=== PATIENT | male | born 1970 | race Caucasian/White ===

== ENCOUNTER 2019-10-08 12:33 | Day surgery (SDC) | payer BC ==
[2019-10-07 12:05] VITALS: BMI 40.7
[~2019-10-08 12:33] MED LIST: Cyclopentolate 1% Opth Drop 2 ML BOT L EYE SCH; EPINEPHrine 0.3 MG in Ophthalmic Irrigation Solution 500 ML IRR SCH; Midazolam HCl 2 mg/2 ml Vial ONE
[2019-10-08] MEDS ORDERED: Cyclopentolate W/ Phenylephrin 40 DROP/2 ML BOT ONE (12:40)
[2019-10-08] MEDS ORDERED: EPINEPHrine 0.3 MG in Ophthalmic Irrigation Solution 500 ML IRR SCH (13:00)
[2019-10-08] MEDS ORDERED: Lidocaine 1% PF 5 ML VIAL ONE (14:21)
[2019-10-08] MEDS ORDERED: Lidocaine 4% PF 5 ML AMP ONE (14:21)
[2019-10-08] MEDS ORDERED: CEFAZOLIN 1 GM VIAL ONE (14:21)
[2019-10-08] MEDS ORDERED: Triamcinolone 40 MG/ML VIAL ONE (14:21)
[2019-10-08] MEDS ORDERED: PROPOFOL 200 MG/20 ML VIAL ONE (14:21)
[2019-10-08] MEDS ORDERED: Bupivacaine PF 0.75% SDV 10 ML ONE (14:21)
--- NOTE | 2019-10-08 19:33 | OP ---
DATE OF PROCEDURE: 10/08/2019 PRINCIPAL PREOPERATIVE DIAGNOSES: 1. Tractional retinal detachment, left eye. 2. Vitreous hemorrhage, left eye. 3. Proliferative diabetic retinopathy, left eye. POSTOPERATIVE DIAGNOSES: 1. Tractional retinal detachment, left eye. 2. Vitreous hemorrhage, left eye. 3. Proliferative diabetic retinopathy, left eye. PROCEDURES PERFORMED: 1. A 25-gauge pars plana vitrectomy, left eye. 2. Tractional retinal detachment repair, left eye. 3. Endolaser panretinal photocoagulation, left eye. ESTIMATED BLOOD LOSS: None. SPECIMENS REMOVED: None. COMPLICATIONS: None. ANESTHESIA: MAC with retrobulbar block. SUMMARY OF THE OPERATION: The patient was identified in the preoperative holding area, where the correct eye being the left eye was marked for surgery. The patient was taken to the operating room, where MAC anesthesia was induced. A retrobulbar block was administered to the left eye. The block consisted of 1:1 ratio of 4% lidocaine with 0.75% Marcaine. A total of 5 mL was administered. The left eye was then prepped and draped in usual sterile ophthalmic fashion for surgery. A wire-clip lid speculum was placed. A standard 25-gauge pars plana vitrectomy platform was fashioned with trocars placed approximately 4 mm from the limbus. The infusion was noted to be within the vitreous cavity prior to being turned on to infusion pressure of 30 mmHg. The light pipe and microvitrector were introduced in the eye under visualization of the BIOM viewing system. A dense vitreous hemorrhage was noted obscuring view of the fundus. A careful core vitrectomy was performed, which allowed for complete progressive clearance of the vitreous hemorrhage. Subsequently, a peripheral shave vitrectomy was performed to allow for complete clearance of the vitreous hemorrhage well. At the completion of the clearance of the vitreous hemorrhage, a macula on tractional retinal detachment was noted extending from the optic nerve superotemporal arcade. Additional sites of tractional detachment noted inferonasally as well as supranasally. The traction was released in the vitreous and the tractional detachment was delaminated and segmented with use of the microvitrector. Following completion of vitrectomy, the endolaser was used to provide panretinal photocoagulation in the typical fashion with sparing of the 3 and 9 o'clock meridians. The flute needle was reintroduced in the eye to remove any residual vitreous hemorrhage. Additional endo cautery was applied to the areas of tractional retinal detachment to maintain hemostasis. The cannulas were sequentially removed and all sclerotomies were noted to be watertight. The wire-clip lid speculum was removed followed by subconjunctival Ancef and Kenalog were injected. The wire-clip lid speculum was removed followed by application of TobraDex ophthalmic ointment and a light patch and shield. The patient tolerated the procedure well and was taken to outpatient recovery area in good condition. Job ID: [id number]
== END 2019-10-08 15:20 | disposition home or self-care (01) ==
LOC: SDC 12:33
PROVIDERS: ATTEND Family Medicine
DX: E11.3532 Type 2 diabetes mellitus with proliferative diabetic retinopathy with traction retinal detachment not involving the macula, left eye (principal); H43.12 Vitreous hemorrhage, left eye; I10 Essential (primary) hypertension; E78.5 Hyperlipidemia, unspecified; C61 Malignant neoplasm of prostate; E66.01 Morbid (severe) obesity due to excess calories; Z68.41 Body mass index [BMI] 40.0-44.9, adult
CPT/HCPCS: 36416; J0171; J0690; J2001; J2250; J2704; J3301; J3490

== ENCOUNTER 2019-12-03 09:32 | Day surgery (SDC) | payer BC ==
[2019-12-02 10:13] VITALS: BMI 40.7
[2019-12-03] MEDS ORDERED: EPINEPHrine 0.3 MG in Ophthalmic Irrigation Solution 500 ML IRR SCH (09:37)
[2019-12-03] MEDS ORDERED: Phenylephrine 2.5% Ophth Soln 5 ML BOT ONE (09:52)
[2019-12-03] MEDS ORDERED: Cyclopentolate 1% Opth Drop 2 ML BOT ONE (09:52)
[2019-12-03] MEDS ORDERED: Lidocaine 4% PF 5 ML AMP ONE (10:28)
[2019-12-03] MEDS ORDERED: PROPOFOL 200 MG/20 ML VIAL ONE (10:28)
[2019-12-03] MEDS ORDERED: Bupivacaine PF 0.75% SDV 10 ML ONE (10:28)
[2019-12-03] MEDS ORDERED: Lidocaine 1% PF 5 ML VIAL ONE (10:28)
[2019-12-03] MEDS ORDERED: Maxitrol 0.1% Opth Oint 3.5 GM TUBE ONE (10:28)
[2019-12-03] MEDS ORDERED: Triamcinolone 40 MG/ML VIAL ONE (10:28)
[2019-12-03] MEDS ORDERED: CEFAZOLIN 1 GM VIAL ONE (10:28)
[2019-12-03] MEDS ORDERED: Midazolam HCl 2 mg/2 ml Vial ONE (10:40)
[2019-12-03] MEDS ORDERED: Fentanyl 100 MCG/2 ML VIAL ONE ×2 (10:40→14:22)
--- NOTE | 2019-12-03 16:55 | OP ---
DATE OF PROCEDURE: 12/03/2019 PREOPERATIVE DIAGNOSES: 1. Diabetic tractional retinal detachment, right eye. 2. Vitreous hemorrhage, right eye. 3. Proliferative diabetic retinopathy, right eye. POSTOPERATIVE DIAGNOSES: 1. Diabetic tractional retinal detachment, right eye. 2. Vitreous hemorrhage, right eye. 3. Proliferative diabetic retinopathy, right eye. NAME OF PROCEDURES PERFORMED: 1. 25-gauge pars plana vitrectomy, right eye. 2. Tractional retinal detachment repair, right eye. 3. Endolaser panretinal photocoagulation, right eye. ESTIMATED BLOOD LOSS: None. SPECIMENS REMOVED: None. COMPLICATIONS: None. ANESTHESIA: MAC with retrobulbar block. SUMMARY OF OPERATION: The patient was identified in the preoperative holding area, where the correct eye being the right eye was marked for surgery. The patient was taken to the operating room, where MAC anesthesia was induced. The retrobulbar block was administered to the right eye. The block consisted of 1:1 ratio of 4% lidocaine and 0.75% Marcaine. A total of 5 mL was administered. The right eye was then prepped and draped in the usual sterile ophthalmic fashion for surgery. A wire-clip lid speculum was placed. A standard 25-gauge pars plana vitrectomy platform was fashioned with trocars placed approximately 4 mm from the limbus. The infusion was noted to be within the vitreous cavity prior to being turned on to an infusion pressure of 30 mmHg. The light pipe and microvitrector were introduced in the eye under visualization of the BIOM viewing system. A dense vitreous hemorrhage was noted obscuring adequate view of the fundus. The microvitrector was utilized to progressively clear the vitreous hemorrhage, starting in the central portion of the vitreous cavity. Progressive clearance of the vitreous hemorrhage was performed, which allowed for progressive view of the posterior pole. Upon clearance of vitreous hemorrhage, a tractional retinal detachment was noted, starting from the supratemporal arcade, moving nasally to the nasal periphery and an inferotemporally along just inferior to the inferotemporal arcade vessels. This tractional retinal detachment was segmented and delaminated with use of the microvitrector. This allowed for significant relaxation of the retina. No defects were noted. The Endolaser was used to provide panretinal photocoagulation around the entire periphery with sparing of the 3 and 9 o'clock meridians. Endo cautery was used to cauterize to maintain hemostasis as necessary. The cannulas were sequentially removed with suturing of the supranasal and supratemporal sclerotomy with 8-0 Vicryl suture. Following suturing, all sclerotomies were noted to be watertight. Subconjunctival Ancef and Kenalog were injected. The wire-clip lid speculum was removed followed by application of Tobradex ophthalmic ointment and a light patch and shield. The patient tolerated the procedure well and was taken to outpatient recovery area in good condition. Job ID: [id number]
== END 2019-12-03 15:00 | disposition home or self-care (01) ==
LOC: SDC 09:32
PROVIDERS: ATTEND Ophthalmology Retina Specialist
PROC: 08QE3ZZ Repair Right Retina, Percutaneous Approach (ICD-10-PCS; principal; 2019-12-03)
PROC: 08T43ZZ Resection of Right Vitreous, Percutaneous Approach (ICD-10-PCS; principal; 2019-12-03)
DX: E11.3531 Type 2 diabetes mellitus with proliferative diabetic retinopathy with traction retinal detachment not involving the macula, right eye (principal); H43.11 Vitreous hemorrhage, right eye; Z79.4 Long term (current) use of insulin; Z79.899 Other long term (current) drug therapy
CPT/HCPCS: J0171; J0690; J2001; J2250; J2704; J3010; J3301; J3490